=== PATIENT | female | born 1980 | race Caucasian/White ===

== ENCOUNTER 2023-10-11 20:50 | Emergency (ER) | payer OTHER ==
[2023-10-11 20:59] VITALS: BP 155/90; PULSE 69; RESP 16; TEMP 98.8; BMI 28.3
[2023-10-11] MEDS ORDERED: KETOROLAC TROMETHAMINE 30 MG/1 ML VIAL ONE (21:08)
[2023-10-11] MEDS ORDERED: ACETAMINOPHEN 500 MG TABLET (FP) ONE (21:08)
[2023-10-11] MEDS: ACETAMINOPHEN 500 MG TABLET (FP) PO ONE (21:20)
[2023-10-11] MEDS: KETOROLAC TROMETHAMINE 30 MG/1 ML VIAL IM ONE (21:20)
== END 2023-10-11 21:23 | disposition home or self-care (01) ==
LOC: JERFT 20:50
PROC: 3E0233Z Introduction of Anti-inflammatory into Muscle, Percutaneous Approach (ICD-10-PCS; principal; 2023-10-11)
PROC: 2W3GX1Z Immobilization of Right Thumb using Splint (ICD-10-PCS; 2023-10-11)
DX: M54.6 Pain in thoracic spine (principal); M25.531 Pain in right wrist
CPT/HCPCS: 99284-25